=== PATIENT | male | born 1925 | race Caucasian/White ===

== ENCOUNTER → 2017-01-19 | Outpatient (CLI) | payer MEDICARE, OTHER ==
[2015-04-17 11:51] VITALS: BP 156/71
[~2017-01-19] MED LIST: ALLEGRA ALLERG180 MG PO; APHEN325 MG PO; ARED; ATORVASTATIN CA40 MG PO; CALCIUM1 CAP PO; CARDURA 2MG2 MG PO; CHILDREN'S ASPI81 M1 PO; CITALOPRAM20 MG PO; DIPHENHYDRAMINE25 MG PO; DUO-KAPS1 CAP PO; EFFER-K10 MEQ PO; EX-LAX25 MG PO; FLOVENT DI50 MCG/Act IH; GOOD NEIGHBOR500 M2 PO; LASIX20 M1 PO; LEXAPRO 10MG10 MG PO; MELATONIN10 MG PO; NATURE'S BLEND400 I1 PO; NEURONTIN300 MG PO; PERCOCET 325 MG1 TA2 PO; PREVACID 15MG15 M1 PO; PREVACID 30MG30 M1 PO
== END ==
LOC: LAB 12:31
DX: R06.09 Other forms of dyspnea (principal)

== ENCOUNTER → 2017-01-20 | Outpatient (CLI) | payer MEDICARE, OTHER ==
[2015-04-17 11:51] VITALS: BP 156/71
== END ==
LOC: LAB 14:25
DX: R06.09 Other forms of dyspnea (principal); I10 Essential (primary) hypertension; I35.8 Other nonrheumatic aortic valve disorders; I25.10 Atherosclerotic heart disease of native coronary artery without angina pectoris

== ENCOUNTER → 2017-01-24 | Outpatient (CLI) | payer MEDICARE, OTHER ==
[2015-04-17 11:51] VITALS: BP 156/71
== END ==
LOC: VAS 17:06
DX: R06.09 Other forms of dyspnea (principal); I35.8 Other nonrheumatic aortic valve disorders; I10 Essential (primary) hypertension; I25.10 Atherosclerotic heart disease of native coronary artery without angina pectoris

== ENCOUNTER → 2017-07-28 | Outpatient (CLI) | payer MEDICARE, OTHER ==
[2015-04-17 11:51] VITALS: BP 156/71
[2017-07-28 10:47] LABS: CALCIUM 9.7 mg/dL (8.4-10.2); POTASSIUM 4.6 mmol/L (3.6-5.0); TOTAL BILIRUBIN 1.1 mg/dL (0.2-1.3)
== END ==
LOC: LAB 10:30 → RAD 10:30
PROVIDERS: Family Medicine
DX: I25.10 Atherosclerotic heart disease of native coronary artery without angina pectoris (principal); E78.00 Pure hypercholesterolemia, unspecified; R60.0 Localized edema; C61 Malignant neoplasm of prostate; R06.02 Shortness of breath; Z95.1 Presence of aortocoronary bypass graft; R91.8 Other nonspecific abnormal finding of lung field; R06.00 Dyspnea, unspecified

== ENCOUNTER 2017-08-24 12:03 | Emergency (ER) | payer MEDICARE, OTHER ==
[~2017-08-24] VITALS: Wt 88.2 kg
[2017-08-24] MEDS ORDERED: DURAGESIC50 MCG/PAT TD (12:48)
[2017-08-24] MEDS ORDERED: PANTOPRAZOLE SO20 M1 PO (12:49)
[2017-08-24] MEDS ORDERED: LOSARTAN POTASS25 MG PO (12:49)
[2017-08-24] MEDS ORDERED: ZZZQUIL50 MG/30 M PO (12:51)
[2017-08-24] MEDS ORDERED: MIRALAX17 GM PO (12:51)
[2017-08-24 13:05] LABS: HEMATOCRIT 37.2 % (42.0-52.0); HEMOGLOBIN 11.6 g/dL (13.5-18.0); MEAN CELL VOLUME 99 fl (78-100); MEAN CORPUSCULAR HEMOGLOBIN 31 pg (27-31); MEAN CORPUSCULAR HGB CONC 31 g/dL (33-37); MEAN PLATELET VOLUME 9.5 fl (7.4-10.4); PLATELET COUNT 154 K/mm3 (130-400); RED BLOOD COUNT 3.75 M/mm3 (4.20-5.60); RED CELL DISTRIBUTION WIDTH 13.1 % (11.5-14.5)
[2017-08-24 13:08] LABS: ALBUMIN 3.8 g/dL (3.5-5.0); BUN/CREATININE RATIO 16.6 (6.0-26.0); CALCIUM 9.2 mg/dL (8.4-10.2); POTASSIUM 4.1 mmol/L (3.6-5.0); TOTAL BILIRUBIN 1.2 mg/dL (0.2-1.3); TOTAL PROTEIN 6.9 g/dL (6.3-8.2)
[2017-08-24 13:17] LABS: LYMPHOCYTE 15 % (20-51); MONOCYTE 10 % (3-10); NEUTROPHILS 71 % (42-75)
[2017-08-24 13:23] LABS: URINE APPEARANCE CLEAR; URINE BILIRUBIN NEGATIVE (NEGATIVE); URINE BLOOD TRACE (NEGATIVE); URINE COLOR YELLOW; URINE GLUCOSE NEGATIVE (NEGATIVE); URINE KETONE NEGATIVE (NEGATIVE); URINE LEUKOCYTE ESTERASE NEGATIVE (NEGATIVE); URINE MUCUS PRESENT (NOT PRESENT); URINE NITRATE NEGATIVE (NEGATIVE); URINE PROTEIN(semi-quant) TRACE mg/dL (NEGATIVE); URINE UROBILINOGEN 4 mg/dL (NORMAL)
[2017-08-24] MEDS ORDERED: LASIX20 M1 PO (14:27)
[2017-08-24] MEDS ORDERED: EFFER-K10 MEQ PO (14:27)
[2017-08-24 15:05] VITALS: BP 146/92
--- NOTE | 2017-08-24 18:39 | NUR ---
[facility] notified of Dr Mcgovern's request that pt be admitted to services w/ potential of needing Hospice Services. [facility] notified that pt will need O2 set up, which Dr Mcgovern state may be done on 08-25-17 as pt has available O2 at home, but has never had his own and needs this set up. Records faxed to [facility] and [facility].
== END 2017-08-24 14:33 | disposition home or self-care (01) ==
LOC: ED 12:03
PROVIDERS: Physician Assistant
DX: I11.0 Hypertensive heart disease with heart failure (principal); I50.9 Heart failure, unspecified; R09.02 Hypoxemia; I49.9 Cardiac arrhythmia, unspecified; H35.30 Unspecified macular degeneration; R01.1 Cardiac murmur, unspecified; K21.9 Gastro-esophageal reflux disease without esophagitis; Z99.81 Dependence on supplemental oxygen; Z45.018 Encounter for adjustment and management of other part of cardiac pacemaker; Z95.1 Presence of aortocoronary bypass graft; Z88.3 Allergy status to other anti-infective agents; Z88.5 Allergy status to narcotic agent; Z79.82 Long term (current) use of aspirin